=== PATIENT | female | born 1995 | race American Indian/Alaskan Native ===

== ENCOUNTER 2016-11-07 13:15 | Emergency (ER) | payer MEDICAID ==
[2016-11-07 13:19] VITALS: BMI 16.0
[2016-11-07 13:22] VITALS: TEMP 98.3; O2SAT 100
--- NOTE | 2016-11-07 15:43 | ED PDOC ---
Arrival/HPI - General Historian: Patient - History of Present Illness Time/Duration: Other ( ONSET YESTERDAY) Symptom Onset: Gradual Symptom Course: Unchanged Quality: Burning Severity Level: 2 - General Chief Complaint: ENT Problem Time Seen by Provider: 11/07/16 13:27 - History of Present Illness Narrative History of Present Illness (Text): 11/07/16 15:39 21-year-old female presents today approximately 20 weeks complaining of sore throat and pain to the left ear since yesterday. Patient denies fevers or chills. Denies nausea or vomiting. Denies abdominal pain. No medications have been taken for pain at home. She denies chest pain or shortness of breath. Patient states she's had nasal congestion. Patient states she has 1 sick contact at home with similar symptoms. No other complaints (Unique Quiros) Past Medical History - Provider Review Nursing Documentation Reviewed: Yes - Travel History Have you recently traveled outside [place] w/in the past 3 mons?: No - Infectious Disease Hx of Infectious Diseases: None - Tetanus Immunization Tetanus Immunization: Unknown - Psychiatric Hx Substance Use: No - Anesthesia Hx Anesthesia: No Family/Social History - Physician Review Nursing Documentation Reviewed: Yes Family/Social History: Unknown Family HX Smoking Status: Never Smoked Hx Alcohol Use: No Hx Substance Use: No Allergies/Home Meds Allergies/Adverse Reactions: Allergies No Known Allergies Allergy (Verified 11/07/16 13:19) Home Medications: Home Meds Medication Instructions Recorded Confirmed Multivit/Folic Acid/I 1 tab PO DAILY 11/07/16 11/07/16 [] Review of Systems - Review of Systems Constitutional: absent: Fatigue, Fevers ENT: Sore Throat, Sinus Congestion, Other (LEFT EAR PAIN) Respiratory: absent: SOB, Cough Cardiovascular: absent: Chest Pain, Palpitations Gastrointestinal: absent: Abdominal Pain, Diarrhea, Nausea, Vomiting Genitourinary Female: absent: Dysuria, Frequency Musculoskeletal: absent: Arthralgias, Back Pain, Neck Pain Skin: absent: Rash, Pruritis Neurological: absent: Headache, Dizziness Psychiatric: absent: Anxiety, Depression Physical Exam Vital Signs Reviewed: Yes Temperature: Afebrile Blood Pressure: Normal Pulse: Regular Respiratory Rate: Normal Appearance: Positive for: Well-Appearing, Non-Toxic, Comfortable Pain Distress: None Mental Status: Positive for: Alert and Oriented X 3 - Systems Exam Head: Present: Atraumatic Conjunctiva: Present: Normal Ears: Present: Normal, NORMAL TM, Normal Canal, Other (no mastoid tenderness or erythema). No: Erythema, TM Bulging, TM Perf Mouth: Present: Moist Mucous Membranes, Normal Lips, Normal Tounge, Normal Teeth. No: Drooling, Trismus Pharnyx: Present: Normal. No: ERYTHEMA, EXUDATE, TONSILS ENLARGED, Peritonsilar Swelling, Uvular Deviation, Muffled/Hoarse Voice, Strider, Soft Palate/Uvular Edema Nose (External): Present: Atraumatic Nose (Internal): Present: Normal Inspection Neck: Present: Normal Range of Motion, Trachea Midline. No: Lymphadenopathy Respiratory/Chest: Present: Clear to Auscultation, Good Air Exchange. No: Respiratory Distress, Accessory Muscle Use Cardiovascular: Present: Regular Rate and Rhythm, Normal S1, S2. No: Murmurs Neurological: Present: GCS=15 Skin: Present: Warm, Dry, Normal Color. No: Rashes Psychiatric: Present: Alert, Oriented x 3 Medical Decision Making ED Course and Treatment: 11/07/16 15:41 21-year-old female, 20 weeks complaining of sore throat and left ear pain since last night Vitals stable. Patient afebrile in no distress. Patient refusing Tylenol for pain. 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 Advised patient to take Tylenol as needed for pain/fever reduction. Advised immediate return if symptoms worsen or persist or if new concerning symptoms develop Patient verbalizes understanding of discharge instructions and need for immediate followup. case was discussed with dr. kaur; impression; sore throat, ear pain tylenol every 4 hours as needed for pain increase fluids follow up with the primary care physician within the next 2 days return immediately if symptoms worsen,persist or if new symptoms develop. (Unique Quiros) I was available for consultation during PA evaluation. The chart was reviewed by me, and I agree with disposition. The documented history was done by the physician fur weigher. The documented physical exam was done by the physician fur weigher. The documented procedures were done by the physician fur weigher. (Tyson Kaur) - Lab Interpretations Lab Results: Lab Results 11/07/16 15:00: Grp A Beta Strep Ag Negative Disposition/Present on Arrival - Present on Arrival Any Indicators Present on Arrival: No History of DVT/PE: No History of Uncontrolled Diabetes: No Urinary Catheter: No History of Decub. Ulcer: No History Surgical Site Infection Following: None - Disposition Have Diagnosis and Disposition been Completed?: Yes Disposition Time: 15:44 Patient Plan: Discharge - Disposition Diagnosis: Sore throat, Ear pain Disposition: HOME/ ROUTINE Patient Problems: Current Active Problems Problem Status Onset Ear pain Acute Sore throat Acute Condition: GOOD Additional Instructions: tylenol every 4 hours as needed for pain increase fluids follow up with the primary care physician within the next 2 days return immediately if symptoms worsen,persist or if new symptoms develop. Referrals: Jessica Givens MD [Staff Provider] - Follow up with primary Jennifer Rubi MD [Staff Provider] - Follow up with primary Daniel Bowman DO [Staff Provider] - Follow up with primary Forms: [facility] ([place]), WORK NOTE
[2016-11-07 16:08] VITALS: BP 110/70; PULSE 72; RESP 17
== END 2016-11-07 16:08 | disposition home or self-care (01) ==
LOC: ED 13:15 → MERGE 13:15 → ED 16:08
DX: J02.9 Acute pharyngitis, unspecified (principal); H92.02 Otalgia, left ear